=== PATIENT | female | born 1985 | race Caucasian/White ===

== ENCOUNTER → 2016-06-13 | Outpatient (CLI) | payer OTHER ==
--- NOTE | 2016-06-13 17:56 | DX ---
3 Views Left Shoulder. Clinical Indications: Pain following trauma. Findings: There is a comminuted, mildly displaced fracture of the body of the left scapula. The fract ure does not appear to involve the glenoid. No other fracture is seen. The humeral head is normally l ocated in the glenoid fossa. The bone alignment is normal. Impression: Left scapular fracture.
== END ==
LOC: BMCIMAGING 17:16
PROVIDERS: ATTEND Family Medicine
DX: S42.112A Displaced fracture of body of scapula, left shoulder, initial encounter for closed fracture (principal)